=== PATIENT | female | born 1975 | race American Indian/Alaskan Native ===

== ENCOUNTER 2018-10-18 09:50 | Outpatient (CLI) | payer MEDICAID ==
--- NOTE | 2018-10-18 12:10 | Mammography Report ---
LEFT DIGITAL DIAGNOSTIC MAMMOGRAM: 10/18/18 09:50:00 CLINICAL: For clip placement immediately status post ultrasound biopsy. COMPARISON:[facility] 09/14/18 mammogram FINDINGS: A biopsy clip is now identified at 12 o'clock and correlates with the previously described lesion. IMPRESSION: Concordant clip placement status post ultrasound biopsy. BI-RADS CATEGORY: 4--Suspicious Pathology pending.
--- NOTE | 2018-10-18 12:28 | Ultrasound Report ---
ULTRASOUND GUIDED NEEDLE CORE BIOPSY WITH CLIP PLACEMENT LEFT BREAST AND ULTRASOUND GUIDED NEEDLE CORE BIOPSY OF A LEFT AXILLARY LYMPH NODE : 10/18/18 CLINICAL: A left breast mass and suspicious left axillary lymph node. COMPARISON :[facility] mammograms from 08/13/18 and 09/14/18 and [facility] ultrasound from 09/14/18 FINDINGS: The procedure was explained to the patient and informed consent was obtained. Ultrasound demonstrated the previously described irregular solid hypoechoic mass at 12:30 o'clock 2 cm from the nipple and the previously described enlarged left axillary lymph node. The left breast was marked with a felt tip marker and a timeout was called. The skin was prepped with Betadine and anesthetized with 1% lidocaine. Ultrasound guided needle core biopsy was performed through a small dermatotomy using ultrasound guidance, 2% lidocaine with epinephrine for deep anesthesia and a 14 gauge Achieve biopsy device. Imaging demonstrated satisfactory sampling. 4 cores were obtained and placed in formalin. A localizer clip was deployed within the mass. The skin in the axilla was prepped with Betadine and anesthetized with 1% lidocaine. Ultrasound guided needle core biopsy of a lymph node with suspicious cortical thickening was performed through a small dermatotomy using 2% lidocaine with epinephrine for deep anesthesia and an 18-gauge Achieve biopsy device. Two samples were obtained and placed in formalin. A localizer clip was deployed within the lymph node. Hemostasis was achieved at both sites with minimal pressure and sterile dressings were applied. The patient tolerated the procedure well and there were no apparent complications. A two-view mammogram demonstrated concordant clip placement at 2 sites. She left the department in good condition with instructions for wound care and followup. IMPRESSION: Uncomplicated ultrasound-guided needle core biopsy of a left breast mass and uncomplicated needle core biopsy of a left axillary lymph node.
== END 2018-10-18 09:51 | disposition home or self-care (01) ==
LOC: SPVWC 09:50
PROVIDERS: ATTEND Surgery
DX: C50.412 Malignant neoplasm of upper-outer quadrant of left female breast (principal); I89.8 Other specified noninfective disorders of lymphatic vessels and lymph nodes
CPT/HCPCS: 38505; 76942; 88305; 88341; 88342; 88368

== ENCOUNTER 2018-11-05 14:01 | Outpatient (CLI) | payer MEDICAID ==
--- NOTE | 2018-11-06 12:09 | Magnetic Resonance Report ---
BILATERAL BREAST MRI WITHOUT AND WITH CONTRAST: 11/05/18 14:01:00 CLINICAL: Newly diagnosed left breast cancer. Status post ultrasound-guided needle biopsy of a left breast mass at 12 o'clock 2 cm from the nipple on 10/18/18. Pathology revealed invasive carcinoma NOS, Tiago grade III/III, ER/[place] 100% positive HER-2 negative and Ki-67 90%. Needle biopsy of a left axillary lymph node on the same day was negative for metastasis and the pathology report describes benign lymphoid tissue. COMPARISON:[facility] mammogram and ultrasound images at time of biopsy 10/18/18 and [facility] mammograms from 08/13/18 and 09/14/18 and left breast ultrasound 09/14/18. TECHNIQUE: Axial 1.0-mm T1 without, axial high resolution 2.0-mm T2 and axial 1.0-mm dynamic Vibrant high-resolution postcontrast T1 fat saturation sequences on a 1.5 Criselda magnet. The examination was performed with an 8 channel dedicated [employer] breast coil. Post processing with CAD and subtraction was performed on an [employer] workstation. 19.0 cc of Multihance was injected without incident for the contrast portion of the exam. Consent was obtained prior to the administration of the contrast. FINDINGS: Right: Minimal background parenchymal enhancement. No mass or suspicious enhancement. No suspicious lymph nodes. Left: Minimal background parenchymal enhancement. The known cancer is irregular spiculated enhancing mass at 12 o'clock 3.9 cm from the nipple and only slightly above the nipple. It contains a biopsy clip and measures 16.7 x 14.0 x 13.4 mm. The mass demonstrates heterogeneous enhancement with mixed kinetics, 165% peak enhancement, 31% type I persistent, 49% type II plateau and 20% type III washout waveforms. No other mass or suspicious enhancement of the left breast. A 2.4 cm level I left axillary lymph node contains a biopsy clip and correlates with the recently biopsied lymph node. The cortex is mildly thickened and measures 6 mm. IMPRESSION: 1. A 1.7 cm known left breast cancer and no additional suspicious lesion of either breast. 2. A suspicious left axillary lymph node correlates with the recently biopsied lymph node. No other suspicious lymph nodes. RIGHT BI-RADS 1 -- Negative LEFT BI-RADS 6 -- Known Cancer
== END 2018-11-05 14:02 | disposition home or self-care (01) ==
LOC: SPVIMAG 14:01
PROVIDERS: ATTEND Surgery
DX: C50.412 Malignant neoplasm of upper-outer quadrant of left female breast (principal)
CPT/HCPCS: A9577; C8908; 77049

== ENCOUNTER 2018-12-05 08:15 | Day surgery (SDC) | payer MEDICAID, OTHER ==
--- NOTE | 2018-12-03 12:14 | Anesthesia Consultation ---
Anesthesia Consult and Med Hx - Airway Anesthetic Teeth Evaluation: Good ROM Head & Neck: Adequate Mental/Hyoid Distance: Adequate Mallampati Class: Class II Intubation Access Assessment: Good - Pulmonary Exam CTA: Yes - Cardiac Exam Cardiac Exam: RRR - Pre-Operative Health Status ASA Pre-Surgery Classification: ASA2 Proposed Anesthetic Plan: General (braces) - Central Nervous System Hx Psychiatric Problems: No - Hematic Hx Anemia: Yes (IV IRON) - Other Systems Hx Alcohol Use: No Hx Substance Use: No Hx Cancer: Yes
[2018-12-03 12:15] LABS: Hematocrit 35.1 % (30.3-42.9); Hemoglobin 11.1 gm/dl (10.1-14.3); Mean Corpuscular HGB Conc 32 % (30-34); Mean Corpuscular Volume 76 fl (79-97); Platelet Count 542 K/mm3 (140-440); Red Blood Count 4.61 M/mm3 (3.65-5.03)
[2018-12-03 12:16] LABS: Red Cell Distribution Width 37.3 % (13.2-15.2)
[2018-12-03 13:13] LABS: Total Cells Counted 100
[2018-12-03 13:15] LABS: Anisocytosis 1+; Hypochromasia 1+; Ovalocytes Few; Platelet Estimate Consistent w Auto; Poikilocytosis 1+
--- NOTE | 2018-12-05 07:53 | Anesthesia Day of Surgery ---
Anesthesia Day of Surgery - Day of Surgery Patient Examined: Yes Patient H&P Reviewed: Yes Patient is NPO: Yes Beta Blockers: No Cardiac Clearance: No Pulmonary Clearance: No
[~2018-12-05 08:15] MED LIST: ANCEF/STERILE WATER 2 GM/20 ML 2 GM/20 ML SYRINGE IV NR; DEMEROL IV PRN; DILAUDID IV PRN; LACTATED RINGERS 1,000 ML IV SCH; MARCAINE 0.5% INFILTRATI NR; NARCAN 0.4 MG/1 ML IV PRN; SUBLIMAZE IV PRN; TYLENOL PO NR; VERSED IV NR; XYLOCAINE 1% 20 mL INFILTRATI ONE; ZOFRAN IV PRN
[2018-12-05] MEDS ORDERED: XYLOCAINE 1% 20 mL ONE (08:51)
[2018-12-05] MEDS ORDERED: SUBLIMAZE IV ONE (09:00)
--- NOTE | 2018-12-05 09:32 | Mammography Report ---
NEEDLE LOCALIZATION AND HOOKWIRE PLACEMENT LEFT BREAST:12/05/18 CLINICAL: Left breast cancer. COMPARISON: 10/18/18 FINDINGS: Using mammographic guidance, 1% lidocaine local anesthesia and sterile technique, a 7.5-cm Rivera needle with a hookwire was placed from a CC from above approach to localize a mass with a biopsy clip. The hookwire was deployed and the needle was removed. Satisfactory placement was confirmed on orthogonal views. The patient tolerated the procedure well and there were no apparent complications. IMPRESSION: Uncomplicated hookwire placement left breast.
[2018-12-05] MEDS ORDERED: MARCAINE 0.5% INFILTRATI ONE (10:17)
--- NOTE | 2018-12-05 12:38 | Operative Report ---
Operative Report Operative Report: December 05, 2018 Preoperative diagnosis: Left breast cancer of the upper outer quadrant Postoperative diagnosis: Same Procedure: Left needle localization partial mastectomy of the upper outer quadrant and SLNB Surgeon: Jailene Ballesteros MD Anesthesia: General Findings: Left wire and clip present within radiograph specimen; x 1-2 SLN Complications: None EBL: Minimal Disposition: PACU in good condition Indications for operative procedure: This is a 43 year old lady with newly diagnosed left breast cancer of the upper outer quadrant, Stage I [id number] ER/[place] positive. Recommendations are to proceed with breast conservation. Radiology placed wire at area of cancer. Given proximity to nipple, patient understood if margins were close or positive would recommend a central mastectomy vs total mastectomy at a separate surgery. She understands the role of adjuvant radiation therapy and the possibility of adjuvant chemotherapy. She wished to proceed with the above procedure. Procedure in detail: The patient was taken to radiology for wire placement for localization known area of cancer. Anesthesia placed left pectoral block. Patient was then taken to the operating room. Gen. anesthesia was administered. The left nipple was injected with radioisotope. Left breast and axilla were prepped and draped in the normal sterile operative fashion. The wire was identified. Timeout was performed. Gamma probe was inserted into the axilla. The area of hot spot was identified. A left axillary incision was made with a 15 blade knife with dissection taken down to the subcutaneous tissues. The axillary fascia was opened with the Bovie cautery. 1-2 SLNs were identified. All remaining counts were less than 10% of the highest count. Lymph node was sent to pathology for permanent processing. Hemostasis was obtained in the left axillary cavity. Axillary cavity was appropriately irrigated and suctioned. Hemostasis was noted. Axillary fascia was approximated and closed using interrupted 3-0 Vicryl and the skin brought together and closed using a running 4-0 Monocryl followed by skin affix. Attention was then taken towards the left breast. Ultrasound used to emigdio the area of concern at the 12:00 positon 2 cm from the nipple breast cancer mass. A periareolar breast incision around the 12:00 position was made with a 15 blade knife and dissection taken down to subcutaneous tissues. First began raising of the superior flap with removal of the wire from the skin with dissection take down to the pectoralis muscle, followed by raising of the inferior flap, medial flap and lateral flap with all flaps taken down to the pectoralis muscle. The breast area of concern was appropriately removed posteriorly from the pectoralis muscle with the aid of the Bovie cautery. The wire was at least 9 cm from area of concern. The wire was not encountered. Specimen was marked and then sent to pathology and radiology; radiograph specimen with wire and clip present. Breast cavity was irrigated and hemostasis was obtained. The posterior deep breast tissues were approximated and closed using interrupted 3-0 Vicryl. The subcutaneous tissues were approximated and closed using interrupted 3-0 Vicryl followed by closing of the skin with a running 4-0 Monocryl and skin affix. The patient tolerated surgery very well and she was awaken from anesthesia without any complication and transported to PACU in good condition.
[2018-12-05] MEDS ORDERED: ZOFRAN ONE ×2 (12:44→17:11)
[2018-12-05] MEDS ORDERED: DECADRON ONE (12:44)
[2018-12-05] MEDS ORDERED: DIPRIVAN 10 MG/ML IV ONE (12:44)
[2018-12-05] MEDS ORDERED: SUBLIMAZE ONE ×2 (12:44→13:53)
[2018-12-05] MEDS ORDERED: LACTATED RINGERS 1,000 ML ONE (13:18)
[2018-12-05] MEDS ORDERED: WATER FOR IRRIG STERILE IR ONE (14:17)
--- NOTE | 2018-12-05 16:10 | XRay Report ---
SPECIMEN RADIOGRAPH LEFT BREAST: 12/05/18 08:15:00 CLINICAL: Surgical excision of a known cancer. FINDINGS: The targeted mass with a localizer clip and a hookwire are identified within the specimen. IMPRESSION: Excision of the targeted lesion.
--- NOTE | 2018-12-05 16:16 | Short Stay Summary ---
Short Stay Documentation Date of service: 12/05/18 - History H&P: obtained from office - Allergies and Medications Current Medications: Allergies No Known Allergies Allergy (Verified 11/29/18 16:51) Home Medications Medication Instructions Recorded Confirmed Last Taken Type Cholecalciferol (Vitamin D3) 5,000 unit PO DAILY 11/29/18 12/05/18 12/02/18 History [Vitamin D3] Loratadine 10 mg PO DAILY 11/29/18 12/05/18 12/04/18 History Metformin HCl 500 mg PO Q48H 11/29/18 11/29/18 12/02/18 History HYDROcodone/APAP 5-325 [[place] 1 each PO Q6HR PRN #30 tablet 12/05/18 Unknown Rx 5/325] Active Medications Fentanyl (Sublimaze) 50 mcg IV Q5MIN PRN PRN Reason: Pain , Severe (7-10) Stop: 12/05/18 20:00 Hydromorphone HCl (Dilaudid) 0.5 mg IV Q10MIN PRN PRN Reason: Pain , Severe (7-10) Stop: 12/05/18 20:00 Lactated Ringer's (Lactated Ringers) 1,000 mls @ 42 mls/hr IV DIRECT GREGORY Last Admin: 12/05/18 09:18 Dose: 42 mls/hr Documented by: Midazolam HCl (Versed) 2 mg IV PREOP NR Stop: 12/06/18 06:59 Midazolam HCl (Versed) 2 mg IV PREOP NR Stop: 12/05/18 23:59 Last Admin: 12/05/18 10:29 Dose: 2 mg Documented by: Naloxone HCl (Narcan 0.4 Mg/1 Ml) 0.1 mg IV Q2MIN PRN PRN Reason: Res Rate </= 8 or 02 SAT < 92% - Brief post op/procedure progress note Date of procedure: 12/05/18 Pre-op diagnosis: Left breast cancer of the upper outer quadrant Post-op diagnosis: same Procedure: Left needle localization partial mastectomy with SLNB Anesthesia: GETA Findings: x1-2 SLNs; radiograph specimen with wire and clip present Surgeon: STUART BYNUM Estimated blood loss: minimal Pathology: list (left partial mastectomy; SLNs) Specimen disposition: to lab Condition: stable - Disposition Condition at discharge: Good Disposition: DC-01 TO HOME OR SELFCARE Short Stay Discharge Plan Activity: other (no heavy lifting) Diet: regular Wound: keep clean and dry (may shower in 48 hours; wear breast binder) Follow up with: DELIA WALL MD [Primary Care Provider] - 7 Days STUART BYNUM MD [Staff Physician] - 7 Days Prescriptions: HYDROcodone/APAP 5-325 [[place] 5/325] 1 each PO Q6HR PRN #30 tablet PRN Reason: Pain
[2018-12-05] MEDS ORDERED: BREVIBLOC IV ONE (16:33)
[2018-12-05] MEDS ORDERED: ZOFRAN IV ONE (17:10)
[2018-12-05 18:02] VITALS: BP 123/72
--- NOTE | 2018-12-06 08:51 | Post Anesthesia Evaluation ---
- Post Anesthesia Evaluation Patient Participated: Yes Airway Patent: Yes Stable Respiratory Function: Yes Nausea/Vomiting: No Temp > 96.8F: Yes Pain Manageable: Yes Adequeate Hydration: Yes Anesthesia Complications: No
== END 2018-12-05 18:20 | disposition home or self-care (01) ==
LOC: OR 08:15
PROVIDERS: ATTEND Surgery
DX: C50.412 Malignant neoplasm of upper-outer quadrant of left female breast (principal); E11.9 Type 2 diabetes mellitus without complications; Z79.899 Other long term (current) drug therapy; Z79.84 Long term (current) use of oral hypoglycemic drugs; Z80.1 Family history of malignant neoplasm of trachea, bronchus and lung; Z85.89 Personal history of malignant neoplasm of other organs and systems; Z86.2 Personal history of diseases of the blood and blood-forming organs and certain disorders involving the immune mechanism
CPT/HCPCS: 19281; 19301; 36415; 38525; 38792; 64450; 76098; 78800; 82962; 84703; 85007; 85025; 88307; 88341; 88342; A9541; J0690; J1100; J1170; J2250; J2405; J2704; J3010; J7120; 88333

== ENCOUNTER 2019-01-16 06:52 | Day surgery (SDC) | payer MEDICAID ==
[2019-01-16 07:51] LABS: Hematocrit 36.7 % (30.3-42.9); Hemoglobin 12.2 gm/dl (10.1-14.3); Mean Corpuscular HGB Conc 33 % (30-34); Mean Corpuscular Volume 84 fl (79-97); Platelet Count 315 K/mm3 (140-440); Red Blood Count 4.39 M/mm3 (3.65-5.03)
[2019-01-16 07:52] LABS: Red Cell Distribution Width 28.2 % (13.2-15.2)
[2019-01-16] MEDS ORDERED: NACL 0.9% 500 ML 500 ML IV SCH (08:00)
[2019-01-16 08:01] LABS: INR 0.99 (0.87-1.13)
[2019-01-16 08:02] LABS: Partial Thromboplastin Time 32.1 Sec. (24.2-36.6)
[2019-01-16 08:10] LABS: BUN/Creatinine Ratio 10; Blood Urea Nitrogen 6 mg/dL (7-17); Hemolysis Index 53
[2019-01-16] MEDS ORDERED: HEPARIN/NS 5000 UNIT/500ML(CATH LAB) 500 ML IR ONE (08:16)
[2019-01-16] MEDS ORDERED: HEPARIN 10,000 UNITS/10 ML ONE (08:17)
[2019-01-16] MEDS ORDERED: NACL 0.9% 250ML 0 ML ONE (08:17)
[2019-01-16 08:52] LABS: Basophils % (Manual) 0 % (0.0-1.8); Eosinophils % (Manual) 0 % (0.0-4.3); Monocytes % (Manual) 0 % (0.0-7.3); Total Cells Counted 100
[2019-01-16 08:53] LABS: Anisocytosis 1+; Ovalocytes Few; Platelet Estimate Consistent w Auto; Poikilocytosis 1+
[2019-01-16] MEDS: SUBLIMAZE ONE ×3 (08:56→09:03)
[2019-01-16] MEDS: VERSED ONE ×3 (08:56→09:03)
[2019-01-16] MEDS: XYLOCAINE 1%/ EPI 1:100,000 INFILTRATI ONE ×2 (08:57→09:04)
[2019-01-16] MEDS ORDERED: BENADRYL ONE (09:07)
--- NOTE | 2019-01-16 09:28 | Short Stay Summary ---
Short Stay Documentation Date of service: 01/16/19 - History Principal diagnosis: Left breast cancer H&P: obtained from office - Allergies and Medications Current Medications: Allergies No Known Allergies Allergy (Verified 11/29/18 16:51) Home Medications Medication Instructions Recorded Confirmed Last Taken Type Cholecalciferol (Vitamin D3) 5,000 unit PO DAILY 11/29/18 01/16/19 01/15/19 History [Vitamin D3] 5000 units Loratadine 10 mg PO DAILY 11/29/18 01/16/19 01/15/19 History 10mg Active Medications Sodium Chloride (Nacl 0.9% 500 Ml) 500 mls @ 50 mls/hr IV DIRECT GREGORY Last Admin: 01/16/19 08:19 Dose: 50 mls/hr Documented by: - Brief post op/procedure progress note Date of procedure: 01/16/19 Pre-op diagnosis: left breast cancer Post-op diagnosis: same Procedure: Right IJV port placement Anesthesia: local Surgeon: JACY JEAN BAPTISTE Estimated blood loss: minimal Pathology: none Condition: stable - Disposition Condition at discharge: Good Disposition: DC-01 TO HOME OR SELFCARE Short Stay Discharge Plan Activity: advance as tolerated Weight Bearing Status: Weight Bear as Tolerated Diet: regular Wound: keep clean and dry, per your surgeon's advice Follow up with: DELIA WALL MD [Primary Care Provider] - 7 Days
--- NOTE | 2019-01-16 09:31 | Progress Note ---
Subjective Date of service: 01/16/19 Principal diagnosis: Left breast cancer Interval history: Exam: Ultrasound and fluoroscopic guided port placement Clinical indication: Patient with breast cancer, port for chemotherapy Date: 01/16/2019 Procedure: Following an explanation of the risks, benefits and alternatives; written informed consent was obtained. The patient was brought to the indirect suite and placed in supine position on the examination table. Initial ultrasound evaluation of her right neck demonstrated a patent right internal drug in the vein. The patient's right neck and chest wall were prepped and draped in the usual sterile fashion. 1% lidocaine was used for anesthesia. Under ultrasound guidance, the right internal jugular vein was cannulated with a 7 cm 18-gauge needle. A 0.035 guidewire was advanced into the IVC to document intravenous positioning and for anchoring. The needle was removed. An appropriate port site was chosen along the anterior lateral right chest wall. 1% lidocaine was used for anesthesia at the port pocket site and along the tunnel tract. A port pocket was created using a combination of sharp and blunt dissection. A Bard single-lumen PowerPort was then connected to the catheter tubing and inserted into the port pocket. The catheter tubing was then tunneled antegrade to the venotomy site. An 8 [place]ik peel-away sheath was placed over the guidewire and centrally under fluoroscopy. Following standard guidewire measurements, the guidewire was removed and this access temporarily. The port catheter tubing was cut to length and inserted through the peel-away sheath. The peel-away sheath was removed. The tubing was positioned in the proximal right atrium. The port flushed and aspirated easily and was unlocked with appropriate volumes of heparin. The port incision was closed using 3-0 Vicryl suture and 4-0 Monocryl suture. Dermabond and Steri-Strips were then applied to the port incision and venotomy. The port was then accessed with a Mendoza needle and a sterile dressing applied. The patient tolerated the procedure well. There were no immediate postprocedure complications. Conscious sedation was performed under the guidance of radiologic nursing. Continuous cardiopulmonary monitoring was utilized. Impression: Ultrasound and fluoroscopic guided port placement via the right internal jugular vein. Objective - Constitutional Vitals: Vital Signs - 12hr 01/16/19 07:32 Temperature 97.7 F Pulse Rate 93 H Respiratory 18 Rate Blood Pressure 113/73 [Right] - Labs CBC & Chem 7: 01/16/19 07:34 01/16/19 07:34 Labs: Abnormal lab results 01/16/19 01/16/19 Range/Units 07:34 07:34 RDW 28.2 H (13.2-15.2) % Seg Neuts % (Manual) 89.0 H (40.0-70.0) % Lymphocytes % (Manual) 11.0 L (13.4-35.0) % Seg Neutrophils # Man 8.7 H (1.8-7.7) K/mm3 Lymphocytes # (Manual) 1.1 L (1.2-5.4) K/mm3 Sodium 133 L (137-145) mmol/L Chloride 97.2 L (98-107) mmol/L BUN 6 L (7-17) mg/dL Creatinine 0.6 L (0.7-1.2) mg/dL Glucose 179 H (65-100) mg/dL Medications & Allergies - Medications Allergies/Adverse Reactions: Allergies No Known Allergies Allergy (Verified 11/29/18 16:51) Home Medications: Home Medications Medication Instructions Recorded Confirmed Last Taken Type Cholecalciferol (Vitamin D3) 5,000 unit PO DAILY 11/29/18 01/16/19 01/15/19 History [Vitamin D3] 5000 units Loratadine 10 mg PO DAILY 11/29/18 01/16/19 01/15/19 History 10mg Active Medications: Generic Name Dose Route Start Last Admin Trade Name Abena PRN Reason Stop Dose Admin Sodium Chloride 500 mls @ 50 mls/hr 01/16/19 08:00 01/16/19 08:19 Nacl 0.9% 500 Ml IV 50 mls/hr DIRECT GREGORY Administration
[2019-01-16] MEDS ORDERED: NORCO 5/325 ONE (09:44)
[2019-01-16] MEDS ORDERED: ZOFRAN ONE (09:48)
[2019-01-16] MEDS ORDERED: ZOFRAN IV ONE (09:50)
[2019-01-16] MEDS ORDERED: NORCO 5/325 PO ONE (10:00)
[2019-01-16 11:13] VITALS: BP 109/57
--- NOTE | 2019-01-18 08:18 | Operative Report ---
Operative Report Operative Report: Exam: Ultrasound and fluoroscopic guided placement of right chest wall port Clinical indication: Patient with a history of left breast cancer, port for chemotherapy Date: 01/16/2019 Procedure: Following an explanation of the risks, benefits and alternatives; written informed consent was obtained. The patient was brought to the intrinsic suite and placed in supine position on the examination table. Initial ultrasound evaluation of the neck demonstrated a patent right internal jugular vein. The patient's right neck and chest wall were prepped and draped in the usual sterile fashion. 1% lidocaine was used for anesthesia. Under ultrasound guidance, the right internal jugular vein was cannulated with a 7 cm 18-gauge needle. A 0.035 guidewire was advanced into the IVC under fluoroscopy to document intravenous positioning and for anchoring. The needle was removed. An appropriate port pocket site was created on the anterior lateral right chest wall using a combination of sharp and blunt dissection. A Bard single-lumen PowerPort was then connected to the catheter tubing and inserted into the port pocket. The catheter tubing was tunneled antegrade on the port pocket to the venotomy site. Following dilation over the guidewire under fluoroscopy, an 8 [place] peel-away sheath was placed over the guidewire under fluoroscopy and advanced centrally. Following standard guidewire measurements, the guidewire was removed in this access temporarily. The catheter tubing was cut to length. The guidewire and trocar were removed and the catheter tubing inserted through the peel-away sheath. The peel-away sheath was removed to position the tip of the port within the proximal right atrium. The port flushed and aspirated easily and wasn't locked with appropriate volumes of heparin. The port incision was closed using 3-0 Vicryl and 4-0 Monocryl suture. Dermabond and Steri-Strips were also applied. The port was than left accessed and a sterile dressing applied. The patient tolerated the procedure well. There were no immediate post procedure complications. Conscious sedation was performed under the guidance of radiologic nursing. Continuous cardiopulmonary monitoring was utilized. Impression: Ultrasound and fluoroscopic guided placement of right chest wall single-lumen PowerPort via the right internal jugular vein.
== END 2019-01-16 11:28 | disposition home or self-care (01) ==
LOC: CATHLABREC 06:52
PROVIDERS: ATTEND Radiology Diagnostic Radiology
DX: C50.412 Malignant neoplasm of upper-outer quadrant of left female breast (principal); Z79.899 Other long term (current) drug therapy; Z83.3 Family history of diabetes mellitus; Z98.890 Other specified postprocedural states; Z86.2 Personal history of diseases of the blood and blood-forming organs and certain disorders involving the immune mechanism; Z82.49 Family history of ischemic heart disease and other diseases of the circulatory system
CPT/HCPCS: 36415; 36561; 76937; 80048; 85007; 85025; 85610; 85730; 96374; C1788; J1200; J1644; J2250; J2405; J3010; J7040; J7050; Q9967

== ENCOUNTER 2019-11-12 14:49 | Outpatient (CLI) | payer MEDICAID ==
--- NOTE | 2019-11-12 15:40 | Mammography Report ---
DIGITAL DIAGNOSTIC MAMMOGRAM WITH CAD, 11/12/2019 INDICATION: History of left breast cancer status post left partial mastectomy 12/05/2018 and status pos t radiation therapy. TECHNIQUE: Digital left mammographic imaging was performed. This examination was interpreted with the benefit of Computer-aided Detection analysis. COMPARISON: 07/18/2019 FINDINGS: Breast Density: The breast is heterogeneously dense, which may obscure small masses. There is no evidence of dominant mass, suspicious calcifications or architectural distortion in the l eft breast. Moderate skin thickening of the breast is not significantly changed since the last exam. IMPRESSION: No mammographic evidence of malignancy. Follow up recommendation: Routine yearly BI-RADS Category 2: Benign. A "normal" or negative report should not discourage follow up or biopsy of a clinically significant f inding. A written summary of these findings will be mailed to the patient. The patient will be entered into a mammography reporting system which will generate a reminder letter for the patient's next appointmen t at the appropriate interval. According to the [employer], yearly mammograms are recommended starting at age 40 and continuing as long as a woman is in good health. Breast MRI is recommended for women with an [place] roximately 20-25% or greater lifetime risk of breast cancer, including women with a strong family his tory of breast or ovarian cancer and women who have been treated for Hodgkin's disease. Signer Name: Tiburcio Ma MD Signed: 11/12/2019 3:36 PM Workstation Name: [id number]
== END 2019-11-12 14:50 | disposition home or self-care (01) ==
LOC: SPVWC 14:49
PROVIDERS: ATTEND Surgery
DX: C50.412 Malignant neoplasm of upper-outer quadrant of left female breast (principal)

== ENCOUNTER 2020-03-18 11:20 | Outpatient (CLI) | payer MEDICAID ==
--- NOTE | 2020-03-18 13:17 | Magnetic Resonance Report ---
BILATERAL BREAST MRI WITH AND WITHOUT CONTRAST CLINICAL INFORMATION/INDICATION: History of left breast cancer. TECHNICAL: Coronal STIR, axial T1 and T2-weighted fat sat images were obtained precontrast. 18 cc Mul tiHance contrast was injected intravenously and serial axial T1 weighted images with fat saturation w ere obtained. 3-D MIP projections, kinetic analysis and subtraction imaging was utilized to evaluate. A dedicated 8-channel breast coil was used for image acquisition. COMPARISON: 11/12/2019, 07/18/2019 FINDINGS: Right breast: Scattered fibroglandular tissue is seen with low background parenchymal enhancement. No mass, other suspicious enhancement, lymphadenopathy or other significant abnormality is seen. Left breast: Scattered fibroglandular tissue is seen with low background parenchymal enhancement. Mod erate skin thickening is unchanged. Benign-appearing postoperative changes are seen centrally along t he breast. At the site of this change along the anterior segmental depth of the breast is a seroma co ntaining debris measuring 4.1 x 1.3 cm without suspicious enhancement. No mass, other sites of suspic ious enhancement, lymphadenopathy or other significant abnormalities are seen. Additional findings: None. IMPRESSION: No evidence of malignancy. Benign findings as above. Continued annual screening mammography is recomm ended. Follow up recommendation: Routine yearly BI-RADS Category 2: Benign. Signer Name: Jorge Luis Robb MD Signed: 03/18/2020 1:13 PM Workstation Name: [id number]
== END 2020-03-18 11:21 | disposition home or self-care (01) ==
LOC: SPVIMAG 11:20
PROVIDERS: ATTEND Surgery
DX: C50.412 Malignant neoplasm of upper-outer quadrant of left female breast (principal); N64.89 Other specified disorders of breast
CPT/HCPCS: A9577; C8908; 77049

== ENCOUNTER 2020-08-07 06:37 | Day surgery (SDC) | payer MEDICAID ==
[2020-08-07] MEDS ORDERED: ceFAZolin/STERILE WATER 2 GM/20 ML SYRINGE IV NR (08:00)
[2020-08-07] MEDS ORDERED: MIDAZOLAM 2 MG/2 ML INJ IV NR (08:02)
[2020-08-07] MEDS ORDERED: FAMOTIDINE 20 MG/2 ML INJ IV NR (08:07)
--- NOTE | 2020-08-07 08:17 | Anesthesia Consultation ---
Anesthesia Consult and Med Hx Date of service: 08/07/20 - Airway Anesthetic Teeth Evaluation: Good ROM Head & Neck: Adequate Mental/Hyoid Distance: Adequate Mallampati Class: Class II Intubation Access Assessment: Probably Good - Pre-Operative Health Status ASA Pre-Surgery Classification: ASA2 Proposed Anesthetic Plan: MAC - Pulmonary Hx Smoking: No - Central Nervous System Hx Psychiatric Problems: No - Hematic Hx Anemia: Yes (IV IRON) - Other Systems Hx Alcohol Use: No Hx Substance Use: No Hx Cancer: Yes (left breast CA (2019), s/p left mastectomy, chemo, radiation) Hx Obesity: Yes (BMI 34.9)
--- NOTE | 2020-08-07 08:18 | Anesthesia Day of Surgery ---
Anesthesia Day of Surgery - Day of Surgery Patient Examined: Yes Patient H&P Reviewed: Yes Patient is NPO: Yes
[2020-08-07] MEDS ORDERED: HYDROmorphone 1 MG/1 ML INJ ONE (08:21)
[2020-08-07] MEDS ORDERED: LIDOCAINE MPF (2%) 20 MG/1 ML VIAL 5 ML ONE (08:22)
[2020-08-07] MEDS ORDERED: propofoL 200 MG/20 ML VIAL IV ONE ×2 (08:22→08:56)
[2020-08-07] MEDS ORDERED: LIDOCAINE (1%) 10 MG/1 ML VIAL 20 ML MDV ONE (08:46)
[2020-08-07] MEDS ORDERED: BUPIVACAINE/PF (0.25%) 2.5 MG/ML 30 ML VIAL INFILTRATI ONE ×3 (08:47→09:03)
[2020-08-07] MEDS ORDERED: LACTATED RINGERS 1,000 ML IV SCH (09:00)
[2020-08-07] MEDS ORDERED: LIDOCAINE (1%) 10 MG/1 ML VIAL 20 ML MDV INFILTRATI ONE ×2 (09:02)
[2020-08-07] MEDS ORDERED: WATER FOR IRRIG STERILE 1,500 ML BOTTLE IR ONE (09:03)
[2020-08-07] MEDS ORDERED: NEOMY 40 MG/POLYMYXIN B 200,000 UNITS/ML (GU) AMPULE IR ONE (09:07)
[2020-08-07] MEDS ORDERED: BACITRACIN ZINC OINT 28.4 GM TP ONE (09:27)
--- NOTE | 2020-08-07 09:40 | Short Stay Summary ---
Short Stay Documentation Date of service: 08/07/20 - History H&P: obtained from office - Allergies and Medications Current Medications: Allergies No Known Allergies Allergy (Verified 11/29/18 16:51) Home Medications Medication Instructions Recorded Confirmed Last Taken Type Cholecalciferol (Vitamin D3) 5,000 unit PO DAILY 11/29/18 01/16/19 01/15/19 History [Vitamin D3] 5000 units Loratadine 10 mg PO DAILY 11/29/18 01/16/19 01/15/19 History 10 mg oxyCODONE /ACETAMINOPHEN [Percocet 1 tab PO Q6HR PRN #20 tablet 01/16/19 Unknown Rx 5/325] Sulfamethoxazole/Trimethoprim 1 each PO BID #14 tablet 08/07/20 Unknown Rx [Bactrim DS TAB] Active Medications Cefazolin Sodium (Ancef/Sterile Water 2 Gm/20 Ml) 2 gm IV PREOP NR Stop: 08/07/20 20:00 Famotidine (Pepcid) 20 mg IV ONCE NR Stop: 08/07/20 16:00 Last Admin: 08/07/20 08:30 Dose: 20 mg Documented by: Lactated Ringer's (Lactated Ringers) 1,000 mls @ 100 mls/hr IV DIRECT GREGORY Last Admin: 08/07/20 08:20 Dose: 100 mls/hr Documented by: Midazolam HCl (Versed) 2 mg IV ONCE NR Stop: 08/07/20 20:00 Last Admin: 08/07/20 08:21 Dose: 2 mg Documented by: - Brief post op/procedure progress note Date of procedure: 08/07/20 Pre-op diagnosis: Right port with dehesience Post-op diagnosis: same Procedure: Right port removal Anesthesia: MAC Findings: port removal in its entirety Surgeon: STUART BYNUM Estimated blood loss: minimal Pathology: list Specimen disposition: to lab Condition: stable - Disposition Condition at discharge: Good Disposition: DC-01 TO HOME OR SELFCARE Short Stay Discharge Plan Activity: no restrictions Diet: regular Wound: keep clean and dry (remove dressing in 24 hours; apply bacitracin twice daily to incision; may shower in 48 hours; no baths or pools) Follow up with: STUART BYNUM MD [Staff Physician] - 7 Days Prescriptions: Sulfamethoxazole/Trimethoprim [Bactrim DS TAB] 1 each PO BID #14 tablet
--- NOTE | 2020-08-07 09:48 | Post Anesthesia Evaluation ---
- Post Anesthesia Evaluation Patient Participated: Yes Airway Patent: Yes Stable Respiratory Function: Yes Nausea/Vomiting: No Temp > 96.8F: Yes Pain Manageable: Yes Adequeate Hydration: Yes Anesthesia Complications: No Block Receding Appropriately: Not Applicable Patient on Ventilator: No
--- NOTE | 2020-08-07 09:50 | Operative Report ---
Operative Report Operative Report: Operative Report: Date of Service: August 07, 2020 Preoperative diagnosis: Right port with incision dehiscence Postoperative diagnosis: Same Procedure: Right port removal Surgeon: Jailene Ballesteros MD Anesthesia: Local MAC Findings: Removal of right port in its entirety Complications: None Drain: None Disposition: PACU in good condition Indications for operative procedure: This is a 45-year-old lady with a personal history of left breast cancer, Stage II. She was seen in the office yesterday with findings of right breast with partial incision dehiscence and port exposed. She has been treated for port infection at an outside urgent care out of town- patient was caring for her sick father. Recommendations are to proceed with port removal. She understands that additional antibiotics may be indicated as well and skin may not be able to be closely primarily. Patient wished to proceed with port removal. Procedure in detail: Patient was taken to the operating procedure room. She was laid supine. Local MAC anesthesia was administered. The port was identified of the right chest with port partly exposed with incision dehiscence. The right chest was prepped and draped in the normal sterile operative fashion. The skin was anesthetized with 1% lidocaine mix with quarter percent Marcaine. The prior port incision was opened further with a 15 blade knife and taken down to the subcutaneous tissues. The port was encountered. The catheter was encountered and was appropriately dissected free and removed in its entirety. Then proceed with port removal that was partly out. The port was removed in its entirety without any complications. Hemostasis was obtained. The skin edges were debrided and port cavity site irrigated with antibiotic solution. The subcutaneous tissues were brought together and closed with interrupted 3-0 Vicryl followed by closing of the skin with a running 4-0 Monocryl. She tolerated the procedure very well and was transferred to PACU in good condition.
[2020-08-07] MEDS ORDERED: KETOROLAC 30 MG/1 ML INJ IV PRN (10:04)
[2020-08-07] MEDS ORDERED: HYDROcodone/ACETAMINOPHEN 5-325 MG TAB PO PRN (10:10)
[2020-08-07] MEDS ORDERED: ONDANSETRON 4 MG/2 ML INJ IV PRN (10:43)
[2020-08-07] MEDS ORDERED: ONDANSETRON 4 MG/2 ML INJ ONE (10:45)
[2020-08-07 14:08] VITALS: BP 121/67
== END 2020-08-07 06:38 | disposition home or self-care (01) ==
LOC: OR 06:37
PROVIDERS: ATTEND Surgery
DX: Z45.2 Encounter for adjustment and management of vascular access device (principal); D64.9 Anemia, unspecified; E66.9 Obesity, unspecified; Z79.899 Other long term (current) drug therapy; Z85.3 Personal history of malignant neoplasm of breast; Z83.3 Family history of diabetes mellitus; Z80.1 Family history of malignant neoplasm of trachea, bronchus and lung; Z80.8 Family history of malignant neoplasm of other organs or systems; Z82.49 Family history of ischemic heart disease and other diseases of the circulatory system; Z98.890 Other specified postprocedural states; Z68.34 Body mass index [BMI] 34.0-34.9, adult
CPT/HCPCS: 36590; 87075; 87116; J0690; J1170; J2250; J2405; J2704; J7120

== ENCOUNTER 2020-09-08 09:26 | Outpatient (CLI) | payer MEDICAID ==
--- NOTE | 2020-09-08 10:33 | Mammography Report ---
DIGITAL DIAGNOSTIC MAMMOGRAM WITH CAD, -- 09/08/2020 INDICATION: Patient has history of left breast cancer status post lumpectomy in 2019. Patient has no current complaints. TECHNIQUE: Digital bilateral mammographic imaging was performed. This examination was interpreted with the benefit of Computer-aided Detection analysis. COMPARISON: Prior mammograms 11/12/2019, 07/18/2019, 10/18/2018, and 08/13/2018 FINDINGS: Breast Density: There are scattered areas of fibroglandular density. There is no evidence of dominant mass, suspicious calcifications or architectural distortion in eithe r breast. There is stable benign postlumpectomy change in the left breast. There has been no signific ant change compared with the prior examination. IMPRESSION: Follow up recommendation: Routine yearly BI-RADS Category 2: Benign. A "normal" or negative report should not discourage follow up or biopsy of a clinically significant f inding. A written summary of these findings will be mailed to the patient. The patient will be entered into a mammography reporting system which will generate a reminder letter for the patient's next appointmen t at the appropriate interval. According to the [employer], yearly mammograms are recommended starting at age 40 and continuing as long as a woman is in good health. Breast MRI is recommended for women with an [place] roximately 20-25% or greater lifetime risk of breast cancer, including women with a strong family his tory of breast or ovarian cancer and women who have been treated for Hodgkin's disease. Signer Name: Tamera Coombs MD Signed: 09/08/2020 10:29 AM Workstation Name: [email or web address]
== END 2020-09-08 09:27 | disposition home or self-care (01) ==
LOC: SPVWC 09:26
PROVIDERS: ATTEND Surgery
DX: R92.8 Other abnormal and inconclusive findings on diagnostic imaging of breast (principal); Z85.3 Personal history of malignant neoplasm of breast
CPT/HCPCS: 77066

== ENCOUNTER 2021-02-24 08:43 | Outpatient (CLI) | payer MEDICAID ==
--- NOTE | 2021-02-24 09:29 | Mammography Report ---
DIGITAL DIAGNOSTIC MAMMOGRAM WITH CAD WITH TOMOSYNTHESIS, 02/24/2021 CLINICAL INFORMATION / INDICATION: The patient has a personal history of left breast cancer treated w ith lumpectomy. This is a short-term follow-up evaluation. Patient reports no new breast symptoms. TECHNIQUE: Digital left mammographic imaging was performed. This examination was interpreted with the benefit of Computer-aided Detection analysis. COMPARISON: 09/08/2020, 11/12/2019 FINDINGS: Breast Density: There are scattered areas of fibroglandular density. Stable postsurgical changes are noted in the left breast. No new or suspicious mammographic finding i s identified. IMPRESSION: No mammographic evidence of malignancy. Follow up recommendation: Back to schedule. BI-RADS Category 2: Benign. A "normal" or negative report should not discourage follow up or biopsy of a clinically significant f inding. A written summary of these findings will be mailed to the patient. The patient will be entered into a mammography reporting system which will generate a reminder letter for the patient's next appointmen t at the appropriate interval. According to the [employer], yearly mammograms are recommended starting at age 40 and continuing as long as a woman is in good health. Breast MRI is recommended for women with an [place] roximately 20-25% or greater lifetime risk of breast cancer, including women with a strong family his tory of breast or ovarian cancer and women who have been treated for Hodgkin's disease. Signer Name: Reyna Gracia MD Signed: 02/24/2021 9:25 AM Workstation Name: [email or web address]
== END 2021-02-24 08:44 | disposition home or self-care (01) ==
LOC: SPVWC 08:43
PROVIDERS: ATTEND Surgery
DX: R92.8 Other abnormal and inconclusive findings on diagnostic imaging of breast (principal); Z85.3 Personal history of malignant neoplasm of breast

== ENCOUNTER 2021-04-06 13:11 | Outpatient (CLI) | payer MEDICAID ==
--- NOTE | 2021-04-06 15:45 | Magnetic Resonance Report ---
Bilateral breast MR without and with contrast. History: Status post left breast lumpectomy. No current issues or complaints. Comparison: 02/24/2021, 03/18/2020. Technique: Multiplanar multisequence MR images of the breast were obtained before and after the intra venous administration of 19 ml of Clariscan contrast agent. Post processing analysis and review was p erformed on a separate computer workstation. Findings: Breast composition is scattered fibroglandular. There is mild background parenchymal enhancement with in both breasts. LEFT BREAST: Stable area of lumpectomy change in the left upper outer breast with associated small se rosemary and overlying skin thickening, likely treatment-related. No discrete enhancing mass, dominant fo cus, or other abnormal enhancement is identified within the left breast. RIGHT BREAST: No discrete enhancing mass, dominant focus, or other abnormal enhancement within the ri ght breast. No abnormal axillary or internal mammary lymph nodes. Impression: No evidence of breast malignancy. Stable left breast lumpectomy change. BIRADS 2: Benign A normal MRI does not exclude the presence of some forms of breast malignancy as literature reports s uggest that some forms of ductal carcinoma in situ or lobular carcinoma, particularly, may not be det ected on MRI. The sensitivity and specificity of MRI for cancers under 5 mm may be reduced. MRI does not replace the recommendation for annual conventional mammographic evaluation and should be used as an adjunct to mammography and physical examination as necessary. Signer Name: Raz Rosas MD Signed: 04/06/2021 3:40 PM Workstation Name: [id number]
== END 2021-04-06 13:12 | disposition home or self-care (01) ==
LOC: SPVIMAG 13:11
PROVIDERS: ATTEND Surgery
DX: N64.89 Other specified disorders of breast (principal); Z85.3 Personal history of malignant neoplasm of breast
CPT/HCPCS: A9575; C8908; 77049